=== PATIENT | female | born 1990 | race Caucasian/White ===

== ENCOUNTER 2018-10-04 09:04 | Outpatient (CLI) | payer MEDICAID, SELFPAY ==
[2018-10-04 13:00] LABS: Ammonia < 10 umol/L (11-32)
[2018-10-04 13:07] LABS: ALT 52 U/L (12-78); AST 17 U/L (15-37); Albumin 4.4 g/dL (3.4-5.0); Alkaline Phosphatase 117 U/L (46-116); Anion Gap 10.7 mmol/L (3-11); BUN 8 mg/dL (7-18); Bilirubin, Total 0.5 mg/dL (0.2-1.0); CO2 27.3 mmol/L (21.0-32.0); CREATININE 0.75 mg/dL (0.55-1.02); Calcium 9.2 mg/dL (8.5-10.1); Chloride 102 mmol/L (98-107); Glucose 90 mg/dL (70-100); Potassium 3.6 mmol/L (3.5-5.1); Sodium 140 mmol/L (136-145)
== END 2018-10-04 09:24 ==
LOC: LBO 09:25 → LOS 10:21 → LBO 12:36
PROVIDERS: PCP Family Medicine; Visit Provider Family Medicine
DX: K70.31 Alcoholic cirrhosis of liver with ascites (principal)
CPT/HCPCS: 36415; 80053; 82140

== ENCOUNTER 2020-01-22 14:39 | Outpatient (CLI) | payer MEDICAID, SELFPAY ==
[2020-01-22 16:40] LABS: HCG Qual (Serum) Negative
== END 2020-01-22 14:59 ==
PROVIDERS: PCP Family Medicine; Visit Provider Family Medicine
DX: Z32.00 Encounter for pregnancy test, result unknown (principal); Z30.42 Encounter for surveillance of injectable contraceptive
CPT/HCPCS: 36415; 84703

== ENCOUNTER 2020-05-29 03:07 | Outpatient (CLI) | payer MEDICAID, SELFPAY ==
[2020-05-29 15:02] LABS: ALT 26 U/L (14-59); AST 16 U/L (15-37); Alkaline Phosphatase 59 U/L (46-116); Anion Gap 9.5 mmol/L (3-11); BUN 7 mg/dL (7-18); Bilirubin, Total 0.3 mg/dL (0.2-1.0); CO2 25.5 mmol/L (21.0-32.0); CREATININE 0.64 mg/dL (0.55-1.02); Calcium 8.6 mg/dL (8.5-10.1); Chloride 106 mmol/L (98-107); Glucose 84 mg/dL (74-106); Potassium 4.1 mmol/L (3.5-5.1); Sodium 141 mmol/L (136-145); Total Protein 6.6 g/dL (6.4-8.2)
== END 2020-05-29 03:27 ==
PROVIDERS: PCP Nurse Practitioner Family; Visit Provider Family Medicine
DX: R74.8 Abnormal levels of other serum enzymes (principal)
CPT/HCPCS: 36415; 80053

== ENCOUNTER 2020-08-04 21:05 | Outpatient (REF) | payer MEDICAID, SELFPAY ==
[2020-08-04 21:33] LABS: HCT 41.7 % (36.0-46.0); HGB 13.8 g/dL (11.2-15.7); MCH 29.1 pg (27.0-33.0); MCHC 33.1 % (32.0-36.0); MCV 87.8 fL (80-95); MPV 10.9 fL (8.0-11.0); Platelet Count 265 10^3/uL (130-400); RBC 4.75 10^6/uL (3.93-5.22); RDW 12.2 % (11.7-14.6); RDW-SD 39.8 fL; WBC 12.96 10^3/uL (4.4-10.8)
[2020-08-04 22:00] LABS: ALT 19 U/L (14-59); AST 14 U/L (15-37); Albumin 4.7 g/dL (3.4-5.0); Alkaline Phosphatase 56 U/L (46-116); Anion Gap 11.3 mmol/L (3-11); BUN 8 mg/dL (7-18); Bilirubin, Total 0.4 mg/dL (0.2-1.0); CO2 24.7 mmol/L (21.0-32.0); CREATININE 0.67 mg/dL (0.55-1.02); Calcium 9.1 mg/dL (8.5-10.1); Chloride 104 mmol/L (98-107); Ferritin 104 ng/mL (8-252); Glucose 84 mg/dL (74-106); Magnesium 1.9 mg/dL (1.8-2.4); Potassium 3.7 mmol/L (3.5-5.1); Sodium 140 mmol/L (136-145); TSH 1.56 uIU/mL (0.36-3.74); Total Protein 7.7 g/dL (6.4-8.2)
[2020-08-04 22:29] LABS: FREE T4 1.12 ng/dL (0.76-1.46)
== END 2020-08-04 21:25 ==
LOC: LBN 21:05
PROVIDERS: PCP Nurse Practitioner Family; Visit Provider Nurse Practitioner Family
DX: G25.81 Restless legs syndrome (principal)
CPT/HCPCS: 80053; 85027; 82728; 83735; 84439; 84443

== ENCOUNTER 2020-10-17 15:06 | Outpatient (REF) | payer MEDICAID, SELFPAY ==
--- NOTE | 2020-10-17 14:30 | PAPFT_PTH ---
PATIENT: Zaire Page LOC: [facility] U#:[id number] AGE/SX: 30/F ROOM: RE10/17/[address]: Aleida Franks MD, DC : 1990 BED: DIS: 10/17/2020 SPEC #: [id number] RECD: 10/20/20 13:00 STATUS: KARINA REQ #: [id number] CAESAR: 10/17/20 14:[address]: Aleida Franks DEPT: [facility] Cytology RECD BY: Luisa Linda ENTERED: 10/20/20 13:00 SP TYPE: PAPFT OTHR DR: FRANCESCO Phan Tissues: 1 - CX/ENDOCX FOR PAP SMEARS Procedures: PAP THIN PREP/UVM Screening HPV DNA PROBE Comments: [id number] (HPV 106 / 18/45)
== END 2020-10-17 15:26 ==
LOC: LBN 15:06
PROVIDERS: PCP Nurse Practitioner Family; Visit Provider Family Medicine
DX: Z12.4 Encounter for screening for malignant neoplasm of cervix (principal); Z11.51 Encounter for screening for human papillomavirus (HPV); R87.810 Cervical high risk human papillomavirus (HPV) DNA test positive
CPT/HCPCS: 88142; 87624

== ENCOUNTER 2020-11-28 09:41 | Outpatient (REF) | payer MEDICAID, SELFPAY ==
--- NOTE | 2020-11-28 09:27 | ENDO_PTH ---
PATIENT: Zaire Page LOC: [facility] U#:[id number] AGE/SX: 30/F ROOM: RE11/28/[address]: Shantal Mcintyre MD : 1990 BED: DIS: 11/28/2020 SPEC #: [id number] RECD: 11/28/20 12:35 STATUS: KARINA MONTOYA #: [id number] CAESAR: 11/28/20 09:[address]: Shantal Mcintyre DEPT: Surgical Specimen RECD BY: Luisa Linda ENTERED: 11/28/20 12:36 SP TYPE: Endo OTHR DR: FRANCESCO Phan Tissues: 1 - ENDOCERVICAL BX/CURRETTE Procedures: GROSS AND MICRO LEVEL 4 Comments: [id number]
--- OUTSIDE RECORDS SUMMARY | 2020-11-28 09:49 | XMS_ITS | Encounter Summary ---
:1990 Author Care Team Providers Name Role Phone Gala White AMBULATORY ANALYST Primary Care Provider [phone] [facility] Medical Records Primary Care Provider [phone] Reason for Visit None recorded. Assessment and Plan 1. Restless legs She is instructed that caffein e and chocolate may worsen RLS symptoms and they may be improved by exercise. Also that certain medications may worsen symptoms to include over the counter antihi stamines taken for allergies. She is not taking any medications that would cause/worsen RLS. Her caffeine intake is as late as 6 pm. Labs from 08/04/20 CBC WBC 12.96 otherwise unremarkable, CMP, TSH, guy e T4 , Mg and ferritin (104) all wnl . Labs unremarkable as above. She is taking gabapentin 600 mg TID (last dose at 6 pm) and was on tramadol 50 mg TID until this was discontinued by PCP last month. Her symptoms did not significantly worse n when she stopped this. She has not been on a dopamine agonist in the past or taken higher doses of gabapentin. She is having aching pain symptoms all the time , she can't sit still because of them. T his is all day. She has to get up and walk. A car ride for 40 minutes is very difficult because symptoms get worse. She also has nightly symptoms that a very clas sic for RLS with extreme restlessness. S he is aware of leg twitching and she has sleep fragmentation which may be from PLMS. I am not ordering a PSG because whether she has PLMS or not I am starting her on a dopamine agonist so the outcome wo uld not change. She is advised not to have caffeine after 1-2 pm and I am starting her on ropinirole 1 mg taken 2-3 hours before bedtime. Side effect profile disc ussed including risk of impulse control disorder. I may increase dose at follow- up (or sooner if she calls) and may consider adding BID or increasing gabapentin if needed. I provided greater than 40 minutes in th e care of this patient, more than half the time was spent in [id number] counseling. ? ropinirole 1 mg tablet Discussion Note: None recorded.Patient educational handouts: No information available. Plan of Care Reminders Provider Appointments Office 30 01/27/2021 Pasha dionioswald Ignacio, 9:30AM AMBULATORY ANALYST Lab None ? ? recorded. Referral None ? ? recorded. Procedures None ? ? recorded. Surgeries None ? ? recorded. Imaging None ? ? recorded. Medications Name Start Date ? ? gabapentin 300 mg capsule ? Take 2 capsules 3 times a day by oral route. ibuprofen ? medroxyprogesterone 150 mg/mL intramuscular syringe ? Inject 1 mL every 3 months by intramuscular route. methylphenidate 5 mg tablet ? Take 1 tablet twice a day by oral route. methylphenidate ER 18 mg tablet,extended release 24 hr ? Take 1 tablet every day by oral route. ropinirole 1 mg tablet ? take 1 PO 2-3 hours before bedtime Medications Administered None recorded. Vitals Height Weight BMI Blood Pressure 5 ft 0.75 in 141 lbs 26.9 kg/m2 120/80 mm[Hg] Results Lab Results None recorded. Allergies Code Code System Name Reaction Severity Onset NKDA ? ? ? Problems Name Status Onset Date Source ? Alcohol Abuse Active 08/21/2020 ? Restless Legs Active 08/21/2020 ? 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 Anxiety Active ? ? Attention Deficit Hyperactivity Disorder Active ? ? Secondary Peripheral Neuropathy Active ? ? Procedures None recorded. Vaccine List None recorded. Social History Tobacco Smoking Status Former Smoker Notes: quit 6 months ago Alcohol intake None Live alone or with others? with others Notes: kid s Hard of hearing or deaf in one or N both ears? Animal exposure? Y Notes: cat Caffeine intake Occasional Notes: 3 cups of coffee or tea durning the day . Blind or serious difficulty seeing N Not es: glasses Functional Status No Impairment. Past Encounters 09/23/2020 Restless Legs Debi Pierre AMBULATORY ANALYST: [address] [place] [phone], Ph. History of Present Illness Note: <p>Zaire Page is seen in consultation at the request of Gala White NP for evaluation of restless legs.</p><p>
</p><p>Zaire has a medical history to include alcohol abuse (quit 2017), alcohol myopathy, anxiety, peripheral neuropathy and RLS. Labs reviewed from 08/04/20 CBC WBC 12.96, CMP, TSH, free T4, Mg and ferritin (104) all wnl. Per Gala's last note in 07/2020, Zaire was taking gabapentin 300 mg and tramadol 50 mg TID. She was discontinuing the tramadol at that time.</p><p>
</p><p>{{Zaire# Patient}} feels {{his her*}} biggest problem with sleep is {{her legs# snoring waking up a lot not feeling rested}}. This has been a problem for years. {{He She*}} typically goes to bed at {{10# 9}}pm. It takes {{15# 5}} minutes to fall asleep. {{He She*}} wakes up {{3-10# 1 2 3}} times a night from {{legs# unknown reason pain bathroom}} and it takes {{a few# }} minutes to get back to sleep. {{He She *}} gets up at {{6:30# 5 6 7 8}}am to start {{his her*}} day. {{He She*}} does not take naps. {{He She*}} has disturbances to {{his her*}} sleep to include having {{TV lights noise children pets}} in the bedroom at night. {{He She*}} has never had a sleep study. {{He She*}}sleeps {{alone * with someone}} in a bed.

SLEEP QUALITY: Feels quality of sleep most nights is {{good * okay poor}}.

DAYTIME ALERTNESS: Reports levelof alertness most days to be {{alert * low energy sleepy very sleepy}}.

PSYCH SYMPTOMS: {{Has* Has not}} noted worsening memory {{and * or}} concentration. {{Does have Denies current problems with *}} irritability, depression, {{and or*}} anxiety. {{Has Has not*}} noted difficulty with calculations.

INSOMNIA SYMPTOMS: {{Does have Does not have*}} an active mind at night when trying to sleep. {{Does have Does not have*}} stressful thoughts interfering with sleep. {{Does Does not*}} watch the clock throughout the night. {{Does Does not*}} worry about getting a good night's sleep.

BREATHING SYMPTOMS: {{Does have Does not have*}} snoring. {{Does have Does not have*}} witnessed apnea. {{Does have Does not have*}} nocturnal choking/gasping/dyspnea.{{Does have Does not have*}} mouth breathing. {{Does have Does not have*}} nasal congestion at night.

MOVEMENT SYMPTOMS: {{Does have * Does not have}} tossing & turning. {{Does have Does not have*}} messy sheets in the morning. {{Does have * Does not have}} leg or arm jerks, kicks or twitches in sleep or prior to falling asleep. {{Does * Does not}} have an aching, restless or crawling feeling in legs at night. {{Does * Does not}} have a hard time keeping legs still when trying to sleep. {{Does * Does not}} have muscle cramps or Daniele horses in {{legs arms feet*}}. {{Does Does not*}} have sleep walking ortalking.

DREAM SYMPTOMS: {{Does have Does not have*}} nightmares often that affect ability to sleep. {{Does have Does not have*}} dreams of suffocating/drowning. {{Does Does not*}} dream shortly after falling asleep. {{Does Does not*}} see dreams in the room even when awake.{{Does Does not*}} see or hear things in the room when falling asleep that aren't really there. {{Does Does not*}} see things in the road when driving that aren't really there. {{Has Hasnot*}} had someone see then act our their dreams. {{Has Has not*}} accidentally injured themselveswhile sleeping due to own movements/behaviors.

CATAPLEXY SYMPTOMS: {{Does have Does not have*}} feel limp, lose strength, or fall asleep when very angry, surprised or laughing. {{Does have Does not have*}} leg, arm or face weakness when upset. {{Has Has not*}} had episodes of being unable to move when waking up which is often frightening.

DRIVING: {{Has Has not*}} fallen asleep or nearly fallen asleep driving. {{Has had Has not had*}} an accident related to drowsy driving or not paying attention. {{Does Does not*}} forget the last few miles or minutes while driving. {{Has Has not*}} driven out of danielle and crossed center line or gone onto shoulderwhen driving. {{Has Has not*}} had a passenger tell them they look sleepy when driving.
&l t;br>ESS today 06/23
Minerva Questionnaire Score 0/3</p>Review of Systems: ROS as noted in the HPI Review of Systems ? Notes: <p>no teeth, leg weakness an d pain in leg joints.</p><p>She denies night sweats, snoring, heartburn, nocturia, or morning headaches.</p> Physical Exam ? Notes: <p>General: A&O, well groome d, answers questions appropriately, {{over weight obese morbidly obese n ormal weight * thin}}.
HEAD: normocephalic & atraumatic, {{normal appeari ng chin * retrognathia}}.
EYES: non icteric.
NOSE: open nasal passages, septum midline, no polyps or masses.
THROAT/MOUTH: ankit st mucous membranes, modified mallampati score {{1 2 3 * 4}}, tonsils with out hypertrophy. Lateral wall narrowing grade {{1 * 2 3}}. Tongue scallopin g {{is * is not}} noted.
NECK: supple without palpable lymph nodes.
LUNGS: CTA all mcclellan. Good air movement.
CARDIO: RRR wit hout murmur, gallop or thrill.
ABDOMEN: soft and non tender with positive bowel sounds.
MS: Good ROM of all extremities. No cyanosis, clubbing or katerin ma.
NEURO: A&O. Normal gait.
PSYCH: Normal mood and affect.
CUTANEOU S: no overt lesions or rashes</p>
--- OUTSIDE RECORDS SUMMARY | 2020-11-28 09:49 | XMS_ITS | Encounter Summary ---
:1990 Author Care Team Providers Name Role Phone Gala White ASSOCIATE LOAN OFFICER Primary Care Provider [phone] [facility] Medical Records Primary Care Provider [phone] Reason for Visit Telehealth visit - Patient at home Assessment and Plan Assessment Note This visit was performed virtually using synchronous audio-visual connection via Zoom. As such, the physical examination is necessarily limited. The risks and benefits of the use of this alternative platform were discussed with the parent and verbal consent was obtained. My assessme nt and plans are based on such examination. Further evaluation, including in-person examination, may be needed depending on the response to management or today's recomm endation. 1. Restless legs She was previously instructed that caffeine and chocolate may worsen RLS symptoms and they may be improved by exercise. Also that certain medications may worsen symptoms to include over the co unter antihistamines taken for allergies . She is not taking any medications that would cause/worsen RLS. Her caffeine intake is as late as 6 pm and chocolate so she was reminded to cut back on these. La bs unremarkable. She is taking gabapenti n 600 mg TID (last dose at 6 pm) which helps reduce intensity of her symptoms. She was on tramadol 50 mg TID until this was discontinued by PCP a couple of months ago. Her symptoms did not significantly worsen when she stopped this. Last visit I prescribed ropinirole 1 mg taken 2-3 hours before bedtime. She has been taking this right at bedtime and has ot notice d any improvement in her symptoms. I ask ed her to take it a full three hours before bedtime and call in 1-2 weeks to let me know if it is helping. I may increase dose, increase frequency f dose or de la fuente e to Neupro if not better. It is worth n oting that she seems to complain of significant pain which is not typical of RLS and I wonder how much her neuropathy is playing a role in her symptoms. She may n eed further management with neuropathic medications in the future. I provided greater than 30 minutes in e care of this patient, more than half the time was spent in [id number] counseling. Discussion Note: None recorded.Patient educational handouts: No information available. Plan of Care Reminders Provider Appointments Office 30 01/27/2021 Pasha Pierre, 9:30AM ASSOCIATE LOAN OFFICER Lab None ? ? recorded. Referral None [...] Administered None recorded. Vitals Height Weight BMI 5 ft 0.75 in 121 lbs 23 kg/m2 Results Lab Results None recorded. Allergies Code [...] glasses Functional Status No Impairment. Past Encounters 11/20/2020 Restless Legs Debi Pierre, ASSOCIATE LOAN OFFICER: [address] [place] [phone], Ph. History of Present Illness Note: <p>Zaire Page has a Zoom visit for RLS follow-up. She has given consent to have a telehealth visit. Patient is at home, provider is in the office</p><p>
</p><p>Zaire was seen by me on 09/23/20. She has a medical history to include alcohol abuse (quit 2017), alcohol myopathy, anxiety, peripheral neuropathy and RLS. Labs reviewed from 08/04/20 CBC WBC 12.96, CMP, TSH, free T4, Mg and ferritin (104) all wnl. At her last visit she was taking gabapentin 600 mg TID with persistent aching legs all day and classic RLS every night. I started her on ropinirole 1 mg at that time.</p><p>
</p><p>Zaire tells me she is taking the ropinirole and she does not think it is doing anything but she falls asleep as soon as she takes it so she is waiting to take it until right when she goes to bed. She says she constantly has to move her legs because they hurt. When she moves they do feel better but if she sits still they hurt so bad she c an't stand it. She is taking gabapentin 600 mg TID and this helps with the intensity of the symptoms. She says without the gabapentin the RLS are mouch worse and feel like she is withdrawing from drugs. </p><p>
ESS today 11/23</p>Review of Systems: ROS as noted in the HPI Review of Systems None recorded. Physical Exam ? Notes: <p>N/A</p>
--- OUTSIDE RECORDS SUMMARY | 2020-11-28 09:49 | XMS_ITS ---
:1990 Author Care Team Providers Name Role Phone SNEHAL MCGOWAN FLUSH TESTER Primary Care Provider [phone] [facility] MEDICAL RECORDS Primary Care Provider [phone] Allergies Code Code System Name Reaction Severity Status Onset NKDA ? Medications Name Status Start Date Stop Date ? ? gabapentin 300 mg capsule Active ? Not av ailable Take 2 capsules 3 times a day by oral route. ibuprofen Active ? Not available magnesium 500 mg tablet Completed ? 09/23/20 20 Take by oral route. medroxyprogesterone 150 mg/mL intramuscular syringe Active ? Not available Inject 1 mL every 3 months by intramuscular route. methylphenidate 5 mg tablet Active ? Not available Take 1 tablet twice a day by oral route. methylphenidate ER 18 mg tablet,extended release 24 hr Active ? Not available Take 1 tablet every day by oral route. potassium chloride 20 mEq oral packet Completed ? 09/23/2020 Take 1 packet 4 times a day by oral route. ropinirole 1 mg tablet Active ? Not avail able take 1 PO 2-3 hours before bedtime Problems Name Status Onset Date Source ? Alcohol Abuse Active 08/21/2020 ? Restless Legs Active 08/21/2020 ? 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 Anxiety Active ? ? Attention Deficit Hyperactivity Disorder Active ? ? Secondary Peripheral Neuropathy Active ? ? Procedures None recorded. Results Lab Results None recorded. Past Encounters 11/20/2020 Restless Legs Debi Pierre FLUSH TESTER: [address] [place] [phone], Ph. 09/23/2020 Restless Legs Debi Pierre NP: [address] [place] [phone], Ph. Social History Tobacco Smoking Status Former Smoker Notes: quit 6 months ago Vaccine List None recorded. Plan of Care Reminders Provider Appointments None ? ? recorded. Lab None ? ? recorded. Referral None ? ? recorded. Procedures None ? ? recorded. Surgeries None ? ? recorded. Imaging None ? ? recorded. Vitals 11/20/2020 01:00PM Office 30 Height Weight BMI 154.31 cm 54.88 kg 23 kg/m2 09/23/2020 01:15PM New Patient 43 Height Weight BMI Blood Pressure 154.31 cm 63.96 kg 26.9 kg/m2 120/80 mm[Hg]
== END 2020-11-28 10:01 ==
LOC: LBN 09:41
PROVIDERS: PCP Nurse Practitioner Family; Visit Provider Obstetrics & Gynecology
DX: N87.0 Mild cervical dysplasia (principal); Z86.001 Personal history of in-situ neoplasm of cervix uteri
CPT/HCPCS: 88305

== ENCOUNTER 2021-01-30 13:05 | Emergency (ER) | payer MEDICAID, SELFPAY ==
[2021-01-30 13:09] VITALS: BP 134/28; PULSE 113; RESP 22; TEMP 37.3; O2SAT 96
--- NOTE | 2021-01-30 13:15 | DI.RAD_ITS ---
EXAM: XR ANKLE LT COMPLETE CLINICAL HISTORY: left ankle pain and swelling after twist TECHNIQUE: COMPARISON: CR RIGHT ANKLE COMPLETE from 05/24/2017 FINDINGS: Three views were obtained. There is marked soft tissue swelling adjacent to lateral malleolus. Ther e is a question of slight widening of the tibiofibular and talofibular joints raising the possibility of ligamentous disruption at these joints. No acute fracture is identified. IMPRESSION: RADIATION DOSE DELIVERED: Total DLP
--- NOTE | 2021-01-30 13:15 | NUR.NOTE ---
Nursing Note: Pt given ice pack, pt places it posterior ankle .
--- NOTE | 2021-01-30 13:26 | W.ED.GENAD ---
Discharge Plan Disposition Patient Disposition: HOME Condition: Good Discharge Details Clinical Impression: Acute traumatic internal derangement of left ankle Primary Care Provider: Gala White ED Provider: Luisa Fitzpatrick Home Meds and New Rx's Prescriptions: New lidocaine [Lidoderm] 5 % adhesive patch,medicated 1 patch topical DAILY Qty: 15 RF: 0 No Action ropinirole 1 mg tablet 1 mg PO QHS RF: 0 medroxyprogesterone 150 mg/mL syringe 150 mg IM [id number] Qty: 3 RF: 4 methylphenidate HCl 20 mg tablet 20 mg PO DAILY MDD 20 Qty: 30 RF: 0 multivitamin [Daily Multi-Vitamin] Tablet 1 tab PO DAILY RF: 0 gabapentin 300 mg capsule 600 mg PO TID Qty: 540 RF: 4 methylphenidate HCl 36 mg tablet extended release 24hr 36 mg PO DAILY MDD 1 tab Qty: 30 RF: 0 ibuprofen 600 MG tablet 600 mg PO Q6H PRN (Reason: Pain) Qty: 20 RF: 0 Discharge Instructions Additional Instructions: Lidoderm patch 12 hours on, 12 hours off We reviewed and use your crutches until you are evaluated by orthopedic, give him a call Tuesday to schedule an appointment to review your x-ray findings and injury as it looks like you have injured the ligaments in your ankle Ibuprofen 600 mg every 8 hours with food Tylenol 650 mg 1 g every 6 hours, do not exceed 4 g of Tylenol daily Please return should you have new or worsening complaints Discharge Data Discharge Date/Time-TO BE ENTERED AT DEPARTURE: 01/30/21 14:43 Medical Decision Making X-ray chest abnormality, placed in boot and referred to orthopedics for follow-up Will use crutches Discharge condition Pain control: Ibuprofen and Tylenol Differential Diagnosis Differential Diagnosis: Fracture, strain, dislocation, abrasion Medical Records Medical records reviewed: Yes I reviewed the patient's medical records. Lab Data Lab results reviewed: Yes I reviewed the patient's lab results. HPI 30-year-old female with history of peripheral neuropathy, alcoholic stress test, presents with report of the left ankle pain after missing a step and landing on the ankle. She denies any additional injury or change of . She does state that she has been recovering from opiate addiction and that medication emergency room. She denies head or injury. General Date/Time Provider Initiated Documentation: 01/30/21 13:15. Related Data Home Medications Medication Instructions Recorded Confirmed ibuprofen 600 mg PO Q6H PRN #20 tab 01/18/17 01/30/21 gabapentin 300 mg capsule 600 mg PO TID #540 cap 08/06/20 01/30/21 multivitamin 1 tab PO DAILY 08/22/20 01/30/21 ropinirole 1 mg tablet 1 mg PO QHS 10/17/20 01/30/21 medroxyprogesterone 150 mg/mL 150 mg IM [id number] #3 ml 01/12/21 01/30/21 intramuscular syringe methylphenidate HCl 20 mg tablet 20 mg PO DAILY #30 tab-cap MDD 20 01/12/21 01/30/21 methylphenidate HCl 36 mg 36 mg PO DAILY #30 tab-cap MDD 1 01/21/21 01/30/21 tablet,extended release 24 hr tab lidocaine [Lidoderm] 1 patch TOPICAL DAILY #15 ea 01/30/21 Previous Rx's Medication Instructions Recorded ibuprofen 600 mg PO Q6H PRN #20 tab 01/18/17 gabapentin 300 mg capsule 600 mg PO TID #540 cap 08/06/20 medroxyprogesterone 150 mg/mL 150 mg IM [id number] #3 ml 01/12/21 intramuscular syringe methylphenidate HCl 20 mg tablet 20 mg PO DAILY #30 tab-cap MDD 20 01/12/21 methylphenidate HCl 36 mg 36 mg PO DAILY #30 tab-cap MDD 1 01/21/21 tablet,extended release 24 hr tab lidocaine [Lidoderm] 1 patch TOPICAL DAILY #15 ea 01/30/21 Allergies Allergy/AdvReac Type Severity Reaction Status Date / Time No Known Allergies Allergy Verified 01/30/21 13:12 General Stated Complaint: Orthopedic MAVERICK: 3 Review of Systems Narrative: Review of systems obtained x7 aside from where indicated in [facility] Medical History Abnormal Pap smear of cervix 2011 CIN3 s/p LEEP 2013 ASCUS neg HPV 2016, NIL, +HPV ADHD (attention deficit hyperactivity disorder), inattentive type Alcohol abuse Acute hepatitis, liver failure in 2017 Alcoholic cirrhosis of liver Hospitalized 2017 with hepatic failure. No longer drinking. LFTs normal now Alcoholic myopathy Contraceptive surveillance Generalized anxiety disorder HCV antibody positive No viral load detected History of intravenous drug use in remission Major depressive disorder Peripheral neuropathy Restless legs syndrome Rosacea Surgical History H/O LEEP (~2011) S/P appendectomy S/P cholecystectomy (06/22/16) Family History Mother Diabetes Alcohol abuse Father Alcohol abuse Sister No problems noted. Brother No problems noted. Son No problems noted. Son No problems noted. Maternal Grandfather No problems noted. Maternal Grandmother No problems noted. Paternal Grandfather No problems noted. Paternal Grandmother No problems noted. Social History Smoking/Tobacco Use Status: Former Tobacco Use Tobacco: How many years used: 20 Smoking risk assessment performed?: Yes Alcohol Intake: former Drug use: Socially Substance use type: marijuana Do you feel safe at home: Yes Do you feel safe in your relationship?: Yes Female Reproductive History Menstrual control method: progesterone injection History History 2 Para 2 Hx # Term Pregnancies Multiple births Hx # Pregnancies Ectopic pregnancies AB induced Hx Number of Living Children 2 AB spontaneous Exam Extrem Right lower extremity: normal capillary refill Left lower extremity: normal capillary refill Upper/lower leg/hip images: 1. Hematoma noted, tenderness Neurovascularly intact No tenderness with palpation to proximal tib-fib Course Vital Signs Vital signs: Vital Signs Temperature 37.3 C 01/30/21 13:09 Pulse 113 H 01/30/21 13:09 Respiratory Rate 22 01/30/21 13:09 Blood Pressure 134/28 L 01/30/21 13:09 Pulse Oximetry 96 01/30/21 13:09 Temperature 37.3 C 01/30/21 13:09 Temperature Source Skin 01/30/21 13:09 Pulse 113 H 01/30/21 13:09 Respiratory Rate 22 01/30/21 13:09 Respiratory Effort Non-Labored 01/30/21 13:11 Blood Pressure 134/28 L 01/30/21 13:09 Blood Pressure Position Sitting 01/30/21 13:09 Pulse Oximetry 96 01/30/21 13:09 Oxygen Delivery Method Room Air 01/30/21 13:09 Oxygen Flow Rate 0 01/30/21 13:09 Pain Level 10 01/30/21 13:19
[2021-01-30] MEDS: MORPHine 10 MG/ML VIAL 8 MG IM (13:27)
[2021-01-30] MEDS: Acetaminophen 500 MG TAB 1000 MG PO (13:28)
--- NOTE | 2021-01-30 13:38 | NUR.NOTE ---
Nursing Note: Pt arrives to ED [facility] mother whom drives her, Assisted out of car RN x 2 with wheelchair. Pt does not tolerate weight on left foot. Tearful and reports missed a step and twisted left ankle. Pt reports did not head head, denies LOC. reports no neck back pain. reports 10/10 pain, injury occurred within past 30 min of arriving. Pedal LLE preset , pt has sensation to LLE, toes able to move, cap refull < 3sec. GCS 15.
[2021-01-30] MEDS: oxyCODONE 10 MG TAB PO (14:27)
[2021-01-30] MEDS: Lidocaine 5% Patch 1 PATCH TP (14:27)
[2021-01-30 14:28] VITALS: BP 131/74; PULSE 87; RESP 16; O2SAT 98
--- NOTE | 2021-01-30 14:38 | NUR.NOTE ---
Nursing Note: Pt fitted with ortho boot, tolerates well. Pt instructed and demonstrated use. Pt brought out liborio wheelchair.
--- NOTE | 2021-01-31 12:27 | NUR.NOTE ---
Pt called, had declined crutches yesterday at discharge, thought had some at home. Called today requesting crutches. Pt measured for crutches, instructed on use with return demonstration.
== END 2021-01-30 14:43 | disposition home or self-care (01) ==
PROVIDERS: Emergency Provider Physician Assistant; PCP Nurse Practitioner Family
DX: S99.812A Other specified injuries of left ankle, initial encounter (principal); W18.43XA Slipping, tripping and stumbling without falling due to stepping from one level to another, initial encounter
CPT/HCPCS: 96372; 99284; 73610; 99283; J2270

== ENCOUNTER 2021-02-09 15:04 | Outpatient (CLI) | payer MEDICAID, SELFPAY ==
--- NOTE | 2021-02-09 14:00 | DI.RAD_ITS ---
EXAM: XR TIB/FIB LT CLINICAL HISTORY: L ankle injury. TECHNIQUE: 2D digital imaging was performed. COMPARISON: No exams were available for comparison FINDINGS: There is no evidence of fracture nor dislocation. Mild soft tissue swelling over the lateral malleol us is noted. Tibial plateau appears intact. IMPRESSION: No obvious fracture. DATA REPOSITORY: RADIATION DOSE DELIVERED:
== END 2021-02-09 15:05 | disposition home or self-care (01) ==
LOC: DIORS 15:04
PROVIDERS: PCP Nurse Practitioner Family; Referring Provider Nurse Practitioner Family; Visit Provider Physician Assistant
DX: S99.812D Other specified injuries of left ankle, subsequent encounter (principal)
CPT/HCPCS: 73590

== ENCOUNTER 2021-03-17 08:44 | Outpatient (CLI) | payer MEDICAID, SELFPAY ==
[2021-03-18 15:32] LABS: COVID-19 RT-PCR UVMMC Result Negative (Negative)
== END 2021-03-17 08:45 | disposition home or self-care (01) ==
PROVIDERS: PCP Nurse Practitioner Family; Visit Provider Nurse Practitioner Family
DX: Z20.822 Contact with and (suspected) exposure to COVID-19 (principal)
CPT/HCPCS: U0003

== ENCOUNTER 2021-10-08 02:37 | Outpatient (CLI) | payer MEDICAID, SELFPAY ==
[2021-10-08 13:34] LABS: ESR 5 mm/hr (0-20)
[2021-10-08 13:37] LABS: Abs Immature Grans 0.03 10^3/uL (0.0-0.06); Absolute Basophil Count 0.04 10^3/uL (0.0-0.2); Absolute Lymphocyte Count 2.53 10^3/uL (1.2-3.4); Absolute Monocyte Count 0.88 10^3/uL (0.1-0.8); Absolute Neutrophil Count 6.94 10^3/uL (1.2-6.7); Basophils % 0.4; HCT 40.4 % (36.0-46.0); HGB 13.4 g/dL (11.2-15.7); Immature Grans % 0.3; MCH 29.5 pg (27.0-33.0); MCHC 33.2 % (32.0-36.0); MCV 88.8 fL (80-95); MPV 9.7 fL (8.0-11.0); Monocytes % 8.4; Neutrophils % 65.9; Nucleated RBC 0 %; Platelet Count 258 10^3/uL (130-400); RBC 4.55 10^6/uL (3.93-5.22); RDW 12.9 % (11.7-14.6); RDW-SD 42.4 fL; WBC 10.52 10^3/uL (4.4-10.8)
[2021-10-08 14:29] LABS: C-Reactive Protein 0.05 mg/dL (0.0-0.3)
[2021-10-09 11:54] LABS: Lyme Ab w Rflx to Lyme Confirm Negative (Negative)
[2021-10-13 00:02] LABS: Anaplasma phagocytophilum Negative (Negative); B. miyamotoi PCR Negative (Negative); Babesia divergens/MO-1 Negative (Negative); Babesia duncani Negative (Negative); Babesia microti Negative (Negative); Ehrlichia chaffeensis Negative (Negative); Ehrlichia ewingii/canis Negative (Negative); Ehrlichia muris eauclairensis Negative (Negative)
== END 2021-10-08 02:38 | disposition home or self-care (01) ==
LOC: LBO 02:37
PROVIDERS: PCP Nurse Practitioner Family; Visit Provider Nurse Practitioner Family
DX: M25.551 Pain in right hip (principal); M25.552 Pain in left hip; M25.561 Pain in right knee; M25.562 Pain in left knee; M25.571 Pain in right ankle and joints of right foot; M25.572 Pain in left ankle and joints of left foot; R63.4 Abnormal weight loss
CPT/HCPCS: 36415; 85652; 87798; 85025; 86140; 86618

== ENCOUNTER 2021-10-19 12:36 | Outpatient (REF) | payer MEDICAID, SELFPAY ==
--- NOTE | 2021-10-19 13:40 | PAPFT_PTH ---
PATIENT: Zaire Page LOC: [facility] U#:[id number] AGE/SX: 31/F ROOM: RE10/19/[address]: FRANCESCO Phan : 1990 BED: DIS: 10/19/2021 SPEC #: [id number] RECD: 10/20/21 13:05 STATUS: KARINA REMorgan #: [id number] CAESAR: 10/19/21 13:[address]: Gala White DEPT: [facility] Cytology RECD BY: Luisa Linda Tissues: 1 - CX/ENDOCX FOR PAP SMEARS Procedures: PAP THIN PREP/UVM Screening HPV DNA PROBE Comments: [id number] (HPV 16 & 18/45)
== END 2021-10-19 12:37 | disposition home or self-care (01) ==
LOC: LBN 12:36
PROVIDERS: PCP Nurse Practitioner Family; Visit Provider Nurse Practitioner Family
DX: Z12.4 Encounter for screening for malignant neoplasm of cervix (principal); Z11.51 Encounter for screening for human papillomavirus (HPV); R87.810 Cervical high risk human papillomavirus (HPV) DNA test positive
CPT/HCPCS: 88142; 87624

== ENCOUNTER 2021-10-28 02:29 | Outpatient (CLI) | payer MEDICAID, SELFPAY ==
[2021-10-28 09:29] LABS: ALT 21 U/L (14-59); AST 13 U/L (15-37); Albumin 4.3 g/dL (3.4-5.0); Alkaline Phosphatase 64 U/L (46-116); Anion Gap 9.5 mmol/L (3-11); BUN 14 mg/dL (7-18); Bilirubin, Total 0.3 mg/dL (0.2-1.0); CO2 27.5 mmol/L (21.0-32.0); CREATININE 0.8 mg/dL (0.55-1.02); Calcium 9.1 mg/dL (8.5-10.1); Calculated LDL 92 mg/dL (<100); Chloride 106 mmol/L (98-107); Cholesterol 141 mg/dL (<200); Glucose 105 mg/dL (74-106); HDL Cholesterol 43 mg/dL (40-60); Potassium 4.1 mmol/L (3.5-5.1); Sodium 143 mmol/L (136-145); Total Protein 7.4 g/dL (6.4-8.2); Triglyceride 34 mg/dL (<150)
== END 2021-10-28 02:30 | disposition home or self-care (01) ==
LOC: LBO 02:29
PROVIDERS: PCP Nurse Practitioner Family; Visit Provider Nurse Practitioner Family
DX: K70.30 Alcoholic cirrhosis of liver without ascites (principal); Z00.00 Encounter for general adult medical examination without abnormal findings
CPT/HCPCS: 36415; 80053; 80061

== ENCOUNTER 2021-11-30 12:36 | Outpatient (REF) | payer MEDICAID, SELFPAY ==
--- NOTE | 2021-11-30 11:20 | ENDO_PTH ---
PATIENT: Zaire Page LOC: [facility] U#:[id number] AGE/SX: 31/F ROOM: RE11/30/[address]: Maddison Lehman DO : 1990 BED: DIS: 11/30/2021 SPEC #: [id number] RECD: 11/30/21 13:12 STATUS: KARINA RE #: [id number] CAESAR: 11/30/21 11:[address]: Maddison Lehman DEPT: Surgical Specimen RECD BY: Luisa Linda ENTERED: 11/30/21 13:13 SP TYPE: Endo OTHR DR: FRANCESCO Phan Tissues: 1 - ENDOCERVICAL BX/CURRETTE 2 - CERVICAL BIOPSY Procedures: GROSS AND MICRO LEVEL 4 Comments: [id number]
== END 2021-11-30 12:37 | disposition home or self-care (01) ==
LOC: LBN 12:36
PROVIDERS: PCP Nurse Practitioner Family; Visit Provider Obstetrics & Gynecology
DX: Z87.42 Personal history of other diseases of the female genital tract (principal)
CPT/HCPCS: 88305

== ENCOUNTER → 2022-10-08 16:29 | Outpatient (CLI) | payer MEDICAID, SELFPAY ==
--- NOTE | 2022-10-08 16:15 | DI.RAD_ITS ---
Exam(s) XR FOOT RT COMPLETE EXAM: XR FOOT RT COMPLETE CLINICAL HISTORY: evaluate pathology M79.671 PAIN RT FOOT. TECHNIQUE: 2D digital imaging was performed of the right foot. Three images were obtained. AP, obl ique and lateral views were obtained. COMPARISON: No exams were available for comparison FINDINGS: BONES: No acute fracture is present. No bony destructive lesion is seen. JOINTS: No dislocation present. SOFT TISSUE: Normal. IMPRESSION: Unremarkable radiographs of the right foot. DATA REPOSITORY: RADIATION DOSE DELIVERED:
== END ==
PROVIDERS: PCP Nurse Practitioner Family; Visit Provider Nurse Practitioner Family
DX: M79.671 Pain in right foot (principal)
CPT/HCPCS: 73630

== ENCOUNTER 2022-10-21 16:59 | Outpatient (REF) | payer MEDICAID, SELFPAY ==
--- NOTE | 2022-10-21 14:15 | PAPFT_PTH ---
PATIENT: Zaire Page LOC: [facility] U#:[id number] AGE/SX: 32/F ROOM: RE10/21/[address]: FRANCESCO Phan : 1990 BED: DIS: 10/21/2022 SPEC #: [id number] RECD: 10/22/22 12:44 STATUS: KARINA REQ #: [id number] CAESAR: 10/21/22 14:[address]: Gala White DEPT: [facility] Cytology RECD BY: Luisa Linda Tissues: 1 - CX/ENDOCX FOR PAP SMEARS Procedures: PAP THIN PREP/UVM Screening HPV DNA PROBE Comments: [id number] (HPV 16 & 18/45)
== END 2022-10-21 17:00 | disposition home or self-care (01) ==
LOC: LBN 16:59
PROVIDERS: PCP Nurse Practitioner Family; Visit Provider Nurse Practitioner Family
DX: Z12.4 Encounter for screening for malignant neoplasm of cervix (principal); Z11.51 Encounter for screening for human papillomavirus (HPV); R87.810 Cervical high risk human papillomavirus (HPV) DNA test positive
CPT/HCPCS: 88142; 87624

== ENCOUNTER 2022-12-07 08:20 | Emergency (ER) | payer MEDICAID, SELFPAY ==
[2022-12-07 08:23] VITALS: BP 122/83; PULSE 101; RESP 18; TEMP 36.7; O2SAT 95
--- NOTE | 2022-12-07 08:30 | DI.RAD_ITS ---
Exam(s) XR FOREARM RT EXAM: XR FOREARM RT CLINICAL HISTORY: Dog bite/crush injury distal forearm. TECHNIQUE: 2D digital imaging was performed. COMPARISON: No exams were available for comparison FINDINGS: Two views: No evidence of fracture or dislocation. Bone density normal. No osseous lesions. No radiopaque for eign body. There is no gas in the soft tissues. IMPRESSION: No significant findings. DATA REPOSITORY: RADIATION DOSE DELIVERED:
--- NOTE | 2022-12-07 08:34 | ED.GENADUL_ITS ---
Discharge Plan Disposition Patient Disposition: Home Condition: Stable Discharge Details Clinical Impression: Dog bite of arm, Crush injury arm Primary Care Provider: Gala White ED Provider: Angelito Dunn Home Meds and New Rx's Prescriptions: New amoxicillin-pot clavulanate 875-125 mg tablet 1 tab PO Q12H 7 Days Qty: 14 0RF Continued Neupro 2 mg/24 hour patch 24 hour 2 mg transdermal DAILY multivitamin [Daily Multi-Vitamin] Tablet 1 tab PO DAILY loratadine [Allergy Relief (loratadine)] 10 mg tablet 10 mg PO DAILY Qty: 90 3RF gabapentin 800 mg tablet 800 mg PO TID Qty: 360 3RF methylphenidate HCl 20 mg tablet 30 mg PO DAILY MDD 30 Qty: 42 0RF Rx Instructions: Take 1.5 tablets daily in the afternoon methylphenidate HCl 36 mg tablet extended release 24hr 36 mg PO DAILY MDD 1 tab Qty: 28 0RF Rx Instructions: Take 1 tablet daily in the morning ibuprofen 600 MG tablet 600 mg PO Q6H PRN (Reason: Pain) Qty: 20 0RF Discharge Instructions Instructions: Animal Bite (ED) Additional Instructions: You may continue to use [id number] pain medication as needed for discomfort. If you notice any signs of redness, drainage, or signs of infection as discussed please start antibiotic immediately and take full course of medication. If you are not seeing signs of improvement in the next 1 to 2 weeks please follow-up with your primary care provider for reassessment and consideration of repeat imaging. You may use the provided wrist brace as needed for discomfort. Stand Alone Forms: Work Release Referrals: Gala White, [facility] [Primary Care Provider] - 1 week (As needed) Medical Decision Making Patient presenting to the emergency department for chief complaint of dog bite to right forearm. She states this was an accidental bite as she was attempting to care for her dog and did not realize the dog had food and bit her on the right forearm when she reached down. She denies any breaking of the skin or open wound but states significant pain with rotation of the forearm and also noted bruising and swelling. Denies any other injury or trauma.. Physical exam does show ecchymosis and swelling to the distal right forearm with 2 large areas of ecchymosis. There does not appear to be any puncture wounds but there is bruising in pattern of teeth. Patient does state that she is up-to-date on her tetanus along with the dog being domesticated dog and up-to-date on all vaccines along with noting no other abnormal behavior of the dog. Will perform radiological imaging of the right forearm for crush injury. Pending results will give acetaminophen as patient took ibuprofen just prior to arrival. My review of radiological imaging shows no acute fracture. Suspect crush injury with surrounding soft tissue injury. Given no obvious break of the skin I do not feel that patient needs to be started on antibiotics emergently but I will give a pocket prescription to patient in case she does start having any infe ctious symptoms given the mechanism of injury. After discussion of diagnosis and plan of care patient has no further needs, questions, or concerns and states clear understanding to return to the emergency department for any worsening symptoms. This documentation was generated using [employer] system, please disregard any oddities of phrase or misspellings. HPI General Mode of arrival: ambulatory . Date/Time Provider Initiated Documentation: 12/07/22 08:27 . Limitations to Documentation: no limitations . Information obtained by: patient and RN notes reviewed . History of Present Illness 32 year old F presents to the emergency department with the chief complaint of Dog bite right forearm, described as severe, with intensity rated at 8. Quality is described as sharp, and is localized to the right and upper extremity. Patient reports no radiation. Patient started experiencing this day(s) (1) and it has been constant. No relieving factors improve symptom(s), Movement worsens symptoms . Patient notes no other symptoms.. Patient did receive the following treatments prior to arrival, NSAID Related Data Home Medications Medication Instructions Recorded Confirmed ibuprofen 600 mg tablet 600 mg PO Q6H PRN Pain #20 tabs 01/18/17 12/07/22 multivitamin (Daily Multi-Vitamin 1 tab PO DAILY 08/22/20 12/07/22 tablet) rotigotine 2 mg/24 hour 2 mg transdermal DAILY 10/19/21 12/07/22 transdermal 24 hour patch (Neupro) loratadine 10 mg tablet (Allergy 10 mg PO DAILY #90 tabs 06/09/22 12/07/22 Relief (loratadine)) gabapentin 800 mg tablet 800 mg PO TID #360 tabs 06/17/22 12/07/22 methylphenidate HCl 20 mg tablet 30 mg PO DAILY #42 tab-caps 09/27/22 12/07/22 methylphenidate HCl 36 mg 36 mg PO DAILY #28 tab-caps 09/27/22 12/07/22 tablet,extended release 24 hr amoxicillin 875 mg-potassium 1 tab PO Q12H 7 days #14 tabs 12/07/22 clavulanate 125 mg tablet Previous Rx's Medication Instructions Recorded ibuprofen 600 mg tablet 600 mg PO Q6H PRN Pain #20 tabs 01/18/17 loratadine 10 mg tablet (Allergy 10 mg PO DAILY #90 tabs 06/09/22 Relief (loratadine)) gabapentin 800 mg tablet 800 mg PO TID #360 tabs 06/17/22 methylphenidate HCl 20 mg tablet 30 mg PO DAILY #42 tab-caps 09/27/22 methylphenidate HCl 36 mg 36 mg PO DAILY #28 tab-caps 09/27/22 tablet,extended release 24 hr amoxicillin 875 mg-potassium 1 tab PO Q12H 7 days #14 tabs 12/07/22 clavulanate 125 mg tablet Allergies Allergy/AdvReac Type Severity Reaction Status Date / Time No Known Allergies Allergy Verified 12/07/22 08:28 General Stated Complaint: AnimalBite MAVERICK: 4 Review of Systems Narrative: 6 systems reviewed and unremarkable except what is marked below. Musculoskeletal Musculoskeletal: Reports as per HPI, Reports arthralgias, Reports joint swelling and Reports limited range of motion Integumentary/Breasts Skin/Breast: Reports unusual bruising and Denies wounds PFSH All Active Problems (Updated 12/07/22 @ 09:07 by Angelito Dunn NP) Alcoholic myopathy (Chronic) Rosacea (Chronic) ADHD (attention deficit hyperactivity disorder), inattentive type (Chronic) Abnormal Pap smear of cervix (Chronic) 2011 CIN3 s/p LEEP 2014 ASCUS neg HPV 2017, NIL, +HPV 2019, NIL, +HPV 2020, NIL, +HPV 2021, NIL, +HPV Peripheral neuropathy (Chronic) Restless legs syndrome (Chronic) Presence of subdermal contraceptive implant (Chronic 06/28/22) Dog bite of arm (Acute) Crush injury arm (Acute) Medical History Alcohol abuse Acute hepatitis, liver failure in 2017 COVID-19 (~02/12/22) Generalized anxiety disorder HCV antibody positive No viral load detected History of intravenous drug use in remission Major depressive disorder Surgical History H/O LEEP (~2011) S/P appendectomy S/P cholecystectomy (06/22/16) Family History Mother Diabetes Alcohol abuse Bipolar disorder Father Alcohol abuse Sister No problems noted. Brother No problems noted. Son No problems noted. Son No problems noted. Maternal Grandfather Diabetes Maternal Grandmother No problems noted. Paternal Grandfather Heart disease Myocardial infarction Paternal Grandmother Diabetes Social History Smoking/Tobacco Use Status: Former Tobacco Use Tobacco: How many years used: 20 Smoking risk assessment performed?: Yes Alcohol Intake: former Drug use: Current Sobriety Caregiver/Support person: No Household members: children Housing: apartment Communication Needs: None Pets and animals: Yes Pets and animals: cat(s) Sexually active: No Do you think of yourself as: straight/heterosexual Current gender identity: female What is your relationship status?: never How often do you talk on the phone with friends or family?: three or more times per week How often do you get together with friends or relatives?: three or more times per week How often do you attend scientologist or oriental orthodox services?: decline to answer Do you belong to any clubs or organized social groups?: decline to answer Panel score (0-1 are the most socially isolated patients): 1 What type of physical activity do you participate in: none Frequency: does not exercise Tanya/Sabianist: Druze Seatbelt use: always Helmet use: Yes Helmet use: always Drive intox or ride w/intox driver trainer: No Do you feel safe at home: Yes Do you feel safe in your relationship?: Yes Female Reproductive History Menstrual control method: implanted History History 2 Para 2 Hx # Term Pregnancies Multiple births Hx # Pregnancies Ectopic pregnancies AB induced Hx Number of Living Children 2 AB spontaneous Exam Const General: cooperative, no acute distress and not ill appearing Orientation: alert, awake and oriented x3 Resp Effort & Inspection: normal respiratory effort, able to speak in complete sentences and no respiratory distress Cardio Rate: regular rate Rhythm: regular rhythm Pulses: radial pulses present Neuro General: patient alert, patient awake, patient oriented x3 and moves all extremities Sensory Exam: no sensory deficits noted Extrem General: normal exam except as noted Right upper extremity: elbow/forearm Details: tenderness and abnormal ROM Details: pain with active ROM during Details: with pronation and with supination, wrist Details: tenderness Location: of the distal radius and of the distal ulna, swelling Location: of the dorsal wrist, abnormal ROM Details: pain with active ROM during, ecchymosis forearm distal Details: multiple, normal vascular exam and radial pulse present; no lacerations and hand Details: normal capillary refill and neurosensory exam normal Course Vital Signs Vital signs: Vital Signs Temperature 36.7 C 12/07/22 08:23 Pulse 101 H 12/07/22 08:23 Respiratory Rate 18 12/07/22 08:23 Blood Pressure 122/83 12/07/22 08:23 Pulse Oximetry 95 12/07/22 08:23 Temperature 36.7 C 12/07/22 08:23 Temperature Source Oral 12/07/22 08:23 Pulse 101 H 12/07/22 08:23 Respiratory Rate 18 12/07/22 08:23 Respiratory Effort Non-Labored 12/07/22 08:25 Blood Pressure 122/83 12/07/22 08:23 Pulse Oximetry 95 12/07/22 08:23 Oxygen Delivery Method Room Air 12/07/22 08:23 Oxygen Flow Rate 0 12/07/22 08:23
[2022-12-07] MEDS: Acetaminophen 500 MG TAB 1000 MG PO (08:44)
--- NOTE | 2022-12-07 09:08 | NUR.NOTE ---
Nursing Note: Animal bite report form faxed to [place] [place] for follow up. Message left for Deisy Silver [facility] health officer regarding the form that was faxed. Deisy Silver [phone] [place] [facility] [employer] fax [phone]
[2022-12-07 09:26] VITALS: BP 118/72; PULSE 85; RESP 18; O2SAT 98
== END 2022-12-07 09:24 | disposition home or self-care (01) ==
PROVIDERS: Emergency Provider Nurse Practitioner Family; PCP Nurse Practitioner Family
DX: S51.851A Open bite of right forearm, initial encounter (principal); Z86.16 Personal history of COVID-19; W54.0XXA Bitten by dog, initial encounter
CPT/HCPCS: 99283; 73090; 99282

== ENCOUNTER 2023-01-17 08:43 | Outpatient (REF) | payer MEDICAID, SELFPAY ==
[2023-01-17 13:25] LABS: *AMPHETAMINES SCREEN URINE Negative (Negative); *BARBITURATES SCREEN URINE Negative (Negative); *BENZODIAZEPINES SCREEN URINE Negative (Negative); Cannabinoids THC Positive (Negative); Cocaine Screen,Urine Negative (Negative); METHADONE URINE SCREEN Negative (Negative); OPIATES URINE SCREEN Negative (Negative)
[2023-01-17 13:37] LABS: Tricyclic Antidepressants Negative (Negative)
== END 2023-01-17 08:44 | disposition home or self-care (01) ==
LOC: LBN 08:43
PROVIDERS: PCP Nurse Practitioner Family; Visit Provider Nurse Practitioner Family
DX: F90.0 Attention-deficit hyperactivity disorder, predominantly inattentive type (principal); Z79.899 Other long term (current) drug therapy; R82.5 Elevated urine levels of drugs, medicaments and biological substances
CPT/HCPCS: 80307

== ENCOUNTER 2023-11-17 09:40 | Outpatient (REF) | payer BC, SELFPAY ==
--- NOTE | 2023-11-17 09:15 | PAPFT_PTH ---
PATIENT: Zaire Page LOC: [facility] U#:[id number] AGE/SX: 33/F ROOM: RE11/17/[address]: Lucille Del Toro : 1990 BED: DIS: 11/17/2023 SPEC #: [id number] RECD: 11/17/23 12:59 STATUS: KARINA REQ #: [id number] CAESAR: 11/17/23 09:[address]: Lucille Del Toro DEPT: [facility] Cytology RECD BY: Luisa Linda ENTERED: 11/17/23 13:00 SP TYPE: PAPFT OTHR DR: Gala White, [employer] ANALYST Tissues: 1 - CX/ENDOCX FOR PAP SMEARS Procedures: PAP THIN PREP/UVM Screening HPV DNA PROBE Comments: [id number] (HPV 16 & 18/45) (CHLAMYDIA/GC)
[2023-11-18 13:42] LABS: Chlamydia Result Negative (Negative); GC Result Negative (Negative)
== END 2023-11-17 09:41 | disposition home or self-care (01) ==
LOC: LBN 09:40
PROVIDERS: PCP Nurse Practitioner Family; Visit Provider Advanced Practice Midwife
DX: N89.8 Other specified noninflammatory disorders of vagina (principal)
CPT/HCPCS: 87491; 87591; 88142; 87480; 87510; 87624; 87660

== ENCOUNTER 2023-11-24 11:02 | Outpatient (CLI) | payer BC, SELFPAY ==
[2023-11-24 11:19] LABS: HCT 42.1 % (36.0-46.0); MCH 29.3 pg (27.0-33.0); MCHC 33.3 % (32.0-36.0); MCV 88 fL (80-95); MPV 9.7 fL (8.0-11.0); Platelet Count 257 10^3/uL (130-400); RBC 4.78 10^6/uL (3.93-5.22); RDW 13.2 % (11.7-14.6); RDW-SD 42.9 fL
[2023-11-24 11:59] LABS: ALT 19 U/L (14-59); AST 12 U/L (15-37); Albumin 4.3 g/dL (3.4-5.0); Alkaline Phosphatase 75 U/L (46-116); Anion Gap 9.9 mmol/L (3-11); BUN 10 mg/dL (7-18); Bilirubin, Total 0.7 mg/dL (0.2-1.0); CO2 26.1 mmol/L (21.0-32.0); CREATININE 0.7 mg/dL (0.55-1.02); Calcium 9.5 mg/dL (8.5-10.1); Chloride 105 mmol/L (98-107); Estimated GFR 115.59 (mL/min/1.73m2); Glucose 99 mg/dL (74-106); Potassium 3.6 mmol/L (3.5-5.1); Sodium 141 mmol/L (136-145); TSH (W/Ref FT4) 1.62 uIU/mL (0.36-3.74); Total Protein 7.8 g/dL (6.4-8.2)
[2023-11-24 18:34] LABS: Hepatitis B Surface Ag Negative (Negative)
[2023-11-24 19:04] LABS: HIV-1/2 Ag & Ab Screen Negative (Negative)
[2023-11-24 19:13] LABS: Hepatitis C Ab w Rflx HCV PCR Reactive (Negative)
[2023-11-25 14:11] LABS: HCV RNA Qualitative Undetected (Undetected)
[2023-11-27 14:48] LABS: Syphilis IgG w/Reflex Nonreactive (Nonreactive)
== END 2023-11-24 11:03 | disposition home or self-care (01) ==
LOC: LBO 11:02
PROVIDERS: PCP Nurse Practitioner Family; Visit Provider Advanced Practice Midwife
DX: Z00.00 Encounter for general adult medical examination without abnormal findings (principal); Z34.91 Encounter for supervision of normal pregnancy, unspecified, first trimester; Z34.90 Encounter for supervision of normal pregnancy, unspecified, unspecified trimester; F32.9 Major depressive disorder, single episode, unspecified
CPT/HCPCS: 36415; 80053; 85027; 86803; 87340; 87389; 87522; 84443; 86780

== ENCOUNTER 2024-06-05 03:22 | Outpatient (CLI) | payer BC, SELFPAY ==
--- NOTE | 2024-06-06 08:33 | W.NUTRFU ---
Date of service: 06/05/24 Time of Service: 14:00 Nutrition Note NOTE: Zaire is a 34yo female referred for today's nutrition visit to get additional assistance/guidance in meeting her weight mgt goals. She states ~130lbs would be desirable body weight. She was 163lbs at her last provider appt, as well as 61.5 - a BMI of 30.5. She does not have food insecurity but does need to make food bedgeting a priority. She relates no known food allergies but highlights that raw produce, in general upsets her stomach - fine with frzn/canned/cooked. She currently takes no nutrition supplements. ADHD meds can influence appetite per Zaire. Typically she falls into an unintentional pattern of eating during the window of 5pm to 9pm, even though she wakes at 5am most days. Her current diet assessed at low in protein, fiber, veggies, essential fats such as n-3's She does not engage in scheduled/targeted exercise routinely but is activity. Recommendations: -start MVI/multi mineral supplement and consider extra vitamin D at 2,000IU per day. make sure MVI contains iodine and iron. -take advantage of waking/daylight hours for influencing thermic effect of food and burn more kcals - eat 20-30g protein within an hour of waking up and consider meal/snack prepping with foods highi in fiber and protein for daytime eating and try to make fasting window more like 7pm to 5am. -Drink a good 2 Liters of water daily -Any kind of intense exercise and or strength training would be of benefit -goal of 25g fiber per day and less than 25g added sugar /day - reviewed tracking and sources of these. PT took my contact info should she desire follow up, more resources, help menu planning in more detail Time Spent in Nutritional Counseling and Treatment: 40min
== END 2024-06-05 03:23 | disposition home or self-care (01) ==
LOC: DS 03:22
PROVIDERS: PCP Nurse Practitioner Family; Visit Provider Dietitian, Registered
DX: R63.4 Abnormal weight loss (principal)
CPT/HCPCS: 00123; 97802

== ENCOUNTER 2024-11-24 10:09 | Emergency (ER) | payer BC, SELFPAY ==
[2024-11-24 10:11] VITALS: BP 111/71; PULSE 93; RESP 16; TEMP 36.8; O2SAT 96
--- NOTE | 2024-11-24 10:15 | DI.CT_ITS ---
Exam(s) CT RENAL COLIC WO EXAM: CT RENAL COLIC WO CLINICAL HISTORY: right flank pain. TECHNIQUE: Imaging Protocol: Axial computed tomography images with coronal and sagittal reformatted images were created and reviewed CONTRAST MATERIAL: Intravenous: none Oral: None COMPARISON: CT ABD PELVIS WITH CONTRAST from 04/29/2017 FINDINGS: VISUALIZED LUNG BASES: No nodules nor pleural effusions evident. ABDOMEN: There is no ascites. LIVER: There is significantly less liver enlargement and steatosis and was evident on the CT scan of March 2017. Liver size is normal. There are no obvious focal hepatic lesions evident on this non few study. GALLBLADDER/BILIARY: The gallbladder is again noted be surgically absent. CBD is not dilated. PANCREAS: No evidence of pancreatic mass nor dilatation of the pancreatic duct. SPLEEN: Spleen is not enlarged. No obvious intrasplenic lesions. ADRENALS: There are no significant adrenal masses. KIDNEYS:No cysts evident. No solid renal masses. No calculi nor hydronephrosis. . ABDOMINAL AORTA: Abdominal aorta is not enlarged. LYMPH NODES: There is no retroperitoneal nor paraaortic adenopathy. ABDOMINAL WALL: There is anterior abdominal wall midline fat only containing umbilical hernia. GI: There is no evidence of bowel obstruction, free air, nor abscess. PELVIS: LYMPH NODES: There is no intrapelvic nor inguinal adenopathy. GI: Surgical clips are noted in the region of the appendix no evidence of appendicitis.No evidence of sigmoid diverticulitis.There is no evidence of colitis pattern, as was evident on the 2017 CT scan. URINARY BLADDER: Bladder is collapsed. REPRODUCTIVE: Uterus and ovaries appear age-appropriate. No extraovarian adnexal masses and no free fluid in the pelvis. OSSEOUS: No significant osseous lesions. No fractures. Sacroiliac joints appear unremarkable. IMPRESSION: 1. No evidence of radiopaque ureteral nor renal calculi, as per request. No hydronephrosis. There a lso no radiopaque calculi in the partially collapsed urinary bladder lumen. 2. Previous cholecystectomy and probable appendectomy. There is no dilatation of biliary tree and th ere is no evidence of bowel obstruction, free air, nor abscess. 3. Significant improvement in the appearance of the liver when compared to CT scan of 2017. 4. No evidence of obvious colitis pattern at this time. Significant colitis was evident on the 2017 CT scan. RADIATION DOSE DELIVERED: 501.88mGy.cm Total DLP DATA REPOSITORY: All CT scans at this facility are submitted to the National Radiology Data Registry (NRDR) Dose Index Registry (DIR) with the [employer] (ACR). RADIATION OPTIMIZATION: All CT scans at this facility use at least one of these dose optimization te chniques: automated exposure control; mA and/or kV adjustment per patient size (includes targeted exa ms where dose is matched to clinical indication); or iterative reconstruction.
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
[2024-11-24] MEDS: Ketorolac 15 MG/ML VIAL IVP (10:41)
[2024-11-24 10:53] LABS: Abs Immature Grans 0.02 10^3/uL (0.0-0.06); Absolute Basophil Count 0.03 10^3/uL (0.0-0.2); Absolute Eosinophil Count 0.11 10^3/uL (0.0-0.7); Absolute Lymphocyte Count 1.73 10^3/uL (1.2-3.4); Absolute Monocyte Count 1.17 10^3/uL (0.1-0.8); Absolute Neutrophil Count 3.48 10^3/uL (1.2-6.7); Basophils % 0.5 %; Eosinophils % 1.7 %; HCT 42.8 % (36.0-46.0); HGB 14.1 g/dL (11.2-15.7); Immature Grans % 0.3 %; Lymphocytes % 26.5 %; MCH 28.7 pg (27.0-33.0); MCHC 32.9 % (32.0-36.0); MCV 87 fL (80-95); MPV 10.1 fL (8.0-11.0); Monocytes % 17.9 %; Neutrophils % 53.1 %; Platelet Count 217 10^3/uL (130-400); RBC 4.92 10^6/uL (3.93-5.22); RDW 12.9 % (11.7-14.6); RDW-SD 41.1 fL; WBC 6.54 10^3/uL (4.4-10.8)
[2024-11-24 10:54] LABS: Bilirubin Negative (Negative); Blood Moderate (Negative); Clarity Clear (Clear); Glucose Negative (Negative); Ketones Negative (Negative); Leukocyte Esterase Negative (Negative); Nitrite Negative (Negative); Specific Gravity 1.025 (1.005-1.025); Urobilinogen 0.2 mg/dL (Up to 0.2); pH 6.5 (5-8)
--- NOTE | 2024-11-24 11:04 | DI.RAD_ITS ---
Exam(s) XR CHEST 2V PA LATERAL EXAM: XR CHEST 2V PA LATERAL CLINICAL HISTORY: cough. TECHNIQUE: 2D digital imaging was performed. COMPARISON: No exams were available for comparison FINDINGS: 2 views: Heart size is normal. The mediastinum is not widened. Right lung is clear. Density in the retrocardiac region left side noted which this possibly just sum mation of shadows. No pleural effusions. IMPRESSION: Possible left lower lobe abnormality. If clinically indicated follow-up CT scan can be performed DATA REPOSITORY: RADIATION DOSE DELIVERED:
[2024-11-24 11:06] LABS: Bacteria Moderate HPF (Negative); C & S Indicated? No; Casts Negative LPF (Negative); Crystals Negative HPF (Negative); Epithelial Cells Moderate HPF (Negative); Mucus Moderate (Negative); WBC 0-2 HPF (0-5)
[2024-11-24 11:08] LABS: ALT 23 U/L (14-59); AST 13 U/L (15-37); Albumin 3.9 g/dL (3.4-5.0); Alkaline Phosphatase 96 U/L (46-116); Anion Gap 4.6 mmol/L (3-11); BUN 8 mg/dL (7-18); Bilirubin, Total 0.48 mg/dL (0.2-1.0); CO2 29.4 mmol/L (21.0-32.0); CREATININE 0.7 mg/dL (0.55-1.02); Calcium 8.7 mg/dL (8.5-10.1); Chloride 109 mmol/L (98-107); Estimated GFR 114.88 (mL/min/1.73m2); Glucose 84 mg/dL (74-106); Lipase 90 U/L (<78); Magnesium 1.8 mg/dL (1.8-2.4); Sodium 143 mmol/L (136-145); Total Protein 7.3 g/dL (6.4-8.2)
--- NOTE | 2024-11-24 11:12 | DI.VRAD_ITS ---
PROCEDURE INFORMATION: Exam: CT Abdomen And Pelvis Without Contrast Exam date and time: 11/24/2024 10:58 AM Age: 34 years old Clinical indication: Other: RT flank pain TECHNIQUE: Imaging protocol: Computed tomography of the abdomen and pelvis without contrast. Radiation optimization: All CT scans at this facility use at least one of these dose optimization techniques: automated exposure control; mA and/or kV adjustment per patient size (includes targeted exams where dose is matched to clinical indication); or iterative reconstruction. COMPARISON: US ABDOMEN ULTRASOUND (P) 03/03/2018 3:10 PM FINDINGS: Liver: Normal. No mass. Gallbladder and biliary ducts: Cholecystectomy Pancreas: Normal. No ductal dilation. Spleen: Normal. No splenomegaly. Adrenal glands: Normal. No mass. Kidneys and ureters: There is no evidence of renal or ureteral calcifications.. Stomach and bowel: Constipation throughout the colon Appendix: Normal appendix Intraperitoneal space: Unremarkable. No free air. No significant fluid collection. Vasculature: Unremarkable. No abdominal aortic aneurysm. Lymph nodes: Unremarkable. No enlarged lymph nodes. Urinary bladder: Unremarkable as visualized. Reproductive: Unremarkable as visualized. Bones/joints: Unremarkable. No acute fracture. Soft tissues: Umbilical hernia contains fat IMPRESSION: There is no evidence of renal or ureteral calcifications.. Dictated and Authenticated by: Donato Will MD. Ordering:MYRIAM Silva MD
--- NOTE | 2024-11-24 11:14 | DI.VRAD_ITS ---
PROCEDURE INFORMATION: Exam: XR Chest Exam date and time: 11/24/2024 11:04 AM Age: 34 years old Clinical indication: Cough TECHNIQUE: Imaging protocol: Radiologic exam of the chest. Views: 2 views. COMPARISON: CT RENAL COLIC WO 11/24/2024 10:58 AM FINDINGS: Lungs: 2.3 x 1.7 cm cavitary lesion is projected through the left heart. This may represent summation of shadows versus true pathology. Recommend chest CT if clinically indicated Pleural spaces: Unremarkable. No pleural effusion. No pneumothorax. Heart/Mediastinum: Unremarkable. No cardiomegaly. Bones/joints: Unremarkable. IMPRESSION: 2.3 x 1.7 cm cavitary lesion is projected through the left heart. This may represent summation of shadows versus true pathology. Recommend chest CT if clinically indicated. This area is not visualized on CT abdomen November 24 Dictated and Authenticated by: Donato Will MD. Ordering:MYRIAM Silva MD
--- NOTE | 2024-11-24 11:30 | DI.CT_ITS ---
Exam(s) CT CHEST W EXAM: CT CHEST W CLINICAL HISTORY: ?cavitary lesion on CT. TECHNIQUE: Multi planar reconstructions were performed. CONTRAST MATERIAL: Omnipaque 350; 75 cc COMPARISON: CT ABD PELVIS WITH CONTRAST from 04/29/2017 FINDINGS: CHEST: LUNGS: There is no infiltrate in the left lower lobe, as suspected on recent chest x-ray. Findings a re explained by normal lung vessels. There are no infiltrates nor pleural effusions. There is a 3 m illimeter nodule fissure related in the region of the lingular segment of the left lung.. There is a lso a 3 millimeter nodule in the right lower lobe lateral basal segment. Also 2 mm nodule in the ant erior basal segment of the right lower lobe. There are no pleural effusions. MEDIASTINUM: There is no hilar nor mediastinal adenopathy. Visualized thyroid unremarkable. CARDIAC: Heart size is normal. There is no pericardial effusion.Caliber of the thoracic aorta is wit hin normal limits. No evidence of dissection. Incidentally noted is independent origin of the left vertebral artery off the aortic arch. Ventricular ratio is 1:1 VISUALIZED UPPER ABDOMEN:There are no significant adrenal masses. Hepatic steatosis noted. OSSEOUS: No significant osseous lesions.. IMPRESSION: 1. No lung infiltrates nor pleural effusions. There are a few tiny benign-appearing lung nodules not ed. These can be restudy with repeat CT scan in 1 year 2. I note that the vertebral report stated possible right-sided pulmonary emboli. There is a possibl y that this is artifact. Please note that this was not performed as a pulmonary embolus study. Osvaldo mmend repeat study with dedicated pulmonary embolus protocol. First read by [facility] Findings are recommendations called by myself to ER physician 11/24/2024 at 3:10 p.m. RADIATION DOSE DELIVERED: 108.68mGy.cm Total DLP DATA REPOSITORY: All CT scans at this facility are submitted to the National Radiology Data Registry (NRDR) Dose Index Registry (DIR) with the [employer] (ACR). RADIATION OPTIMIZATION: All CT scans at this facility use at least one of these dose optimization te chniques: automated exposure control; mA and/or kV adjustment per patient size (includes targeted exa ms where dose is matched to clinical indication); or iterative reconstruction.
[2024-11-24 11:36] LABS: COVID-19 PCR Negative (Negative); Influenza A PCR Negative (Negative); Influenza B PCR Negative (Negative)
[2024-11-24 11:38] LABS: Source Nasopharynx
[2024-11-24 11:39] LABS: RSV PCR Positive (Negative)
[2024-11-24] MEDS: Normal Saline - Diluent 50 ML VIAL IJ (11:41)
[2024-11-24] MEDS: Omnipaque 350 MG/ML 100 ML BTL 70 ML IJ (11:42)
--- NOTE | 2024-11-24 12:13 | DI.VRAD_ITS ---
Addendum created by Donato Will MD on 11/24/2024 12:15:03 PM EST: THIS REPORT CONTAINS FINDINGS THAT MAY BE CRITICAL TO PATIENT CARE. The findings were verbally communicated via telephone conference with Ricardo De Jesus at 12:14 PM EST on 11/24/2024. The findings were acknowledged and understood. Initial report created on 11/24/2024 12:13:31 PM EST: PROCEDURE INFORMATION: Exam: CT Chest With Contrast; Diagnostic Exam date and time: 11/24/2024 11:47 AM Age: 34 years old Clinical indication: Other: ? Cavitary lesion on CT TECHNIQUE: Imaging protocol: Diagnostic computed tomography of the chest with contrast. 3D rendering (Not supervised by radiologist): MIP and/or 3D reconstructed images were created by the technologist. COMPARISON: CR XR CHEST 2V PA LATERAL 11/24/2024 11:04 AM FINDINGS: Lungs: Unremarkable. No consolidation. No masses. Pleural spaces: Unremarkable. No pneumothorax. No pleural effusion. Heart: 11 x 6 mm filling defect in the left atrial appendage may represent thrombus (series 2, image 24.) Smaller filling defect more distal in the atrial appendage on image 23 may represent thrombus.. Lymph nodes: Unremarkable. No enlarged lymph nodes. Vasculature: Filling defects in the distal right pulmonary artery measures 14 x 11 mm (series 8 image 48-54) consistent with non occluding pulmonary embolus. Bones/joints: Unremarkable. No acute fracture. Soft tissues: Unremarkable. IMPRESSION: 1. 11 x 6 mm filling defect in the left atrial appendage may represent thrombus (series 2, image 24.) Smaller filling defect more distal in the atrial appendage on image 23 may represent thrombus.. 2. Filling defects in the distal right pulmonary artery measures 14 x 11 mm (series 8 image 48-54) consistent with non occluding pulmonary embolus. Dictated and Authenticated by: Donato Will MD. Ordering:MYRIAM Silva MD
[2024-11-24 12:32] VITALS: BP 102/77; PULSE 63; RESP 16; O2SAT 98
--- NOTE | 2024-11-24 15:18 | W.ED.FU ---
Date of service: 11/24/24 Follow Up Plan: Patient was seen earlier in the emergency department and diagnosed with a pulmonary embolism and discharged on Eliquis. I was contacted by our radiologist who has over read the CT scan and is not convinced that there is a pulmonary embolism apparent on the study. I contacted the patient and updated her on this result. She understands to follow-up with her PCP and contact them on Tuesday to schedule an appointment. I have also ordered an outpatient CTA to reevaluate this area. Given that she is not hypoxic and hemodynamically stable during her emergency department visit she is already received contrast today do not feel that she needs to return for imaging today.
== END 2024-11-24 12:33 | disposition home or self-care (01) ==
PROVIDERS: Emergency Provider Emergency Medicine; PCP Nurse Practitioner Family
DX: I26.99 Other pulmonary embolism without acute cor pulmonale (principal); F17.210 Nicotine dependence, cigarettes, uncomplicated; F17.290 Nicotine dependence, other tobacco product, uncomplicated; Z79.899 Other long term (current) drug therapy
CPT/HCPCS: 36415; 80053; 81025; 83690; 87637; 96374; 99285; 71046; 71260; 74176; 81003; 81015; 83735; 85025; J1885; J3490

== ENCOUNTER 2024-12-05 15:18 | Outpatient (REF) | payer BC, SELFPAY ==
--- NOTE | 2024-12-05 15:00 | PAPFT_PTH ---
PATIENT: Zaire Page LOC: [facility] U#:[id number] AGE/SX: 34/F ROOM: RE12/05/[address]: Aida De Jesus NP : 1990 BED: DIS: 12/05/2024 SPEC #: [id number] RECD: 12/05/24 17:52 STATUS: KARINA REMogran #: [id number] CAESAR: 12/05/24 15:[address]: Neal PECK,Aida DEPT: [facility] Cytology RECD BY: Luisa Linda ENTERED: 12/05/24 17:52 SP TYPE: PAPFT OTHR DR: Gala White, REHABILITATION MEDICINE PHYSICIAN Tissues: 1 - CX/ENDOCX FOR PAP SMEARS Procedures: PAP THIN PREP/UVM Screening HPV DNA PROBE Comments: [id number] (HPV 16 & 18/45)
== END 2024-12-05 15:19 | disposition home or self-care (01) ==
LOC: LBN 15:18
PROVIDERS: PCP Nurse Practitioner Family; Visit Provider Nurse Practitioner Women's Health
DX: E66.9 Obesity, unspecified (principal); G25.81 Restless legs syndrome
CPT/HCPCS: 88142; 87624

== ENCOUNTER 2025-01-09 04:35 | Outpatient (CLI) | payer BC, SELFPAY ==
[2025-01-09 12:27] LABS: Hemoglobin A1C 5.4 % (<5.7)
[2025-01-09 13:16] LABS: Calculated LDL 89 mg/dL (<100); Cholesterol 142 mg/dL (<200); HDL Cholesterol 44 mg/dL (>or=50); Triglyceride 45 mg/dL (<150); Vitamin B12 1028 pg/mL (193-986); Vitamin D 25 Total 48 ng/mL (30-100)
== END 2025-01-09 04:36 | disposition home or self-care (01) ==
PROVIDERS: PCP Nurse Practitioner Family; Visit Provider Nurse Practitioner Family
DX: Z00.00 Encounter for general adult medical examination without abnormal findings (principal); E55.9 Vitamin D deficiency, unspecified; G62.9 Polyneuropathy, unspecified; G72.1 Alcoholic myopathy
CPT/HCPCS: 36415; 80061; 82306; 82607; 83036

== ENCOUNTER 2025-04-30 21:30 | Outpatient (REF) | payer BC, SELFPAY ==
[2025-04-30 21:22] LABS: HCG Qual (Urine) Negative
== END 2025-04-30 21:31 | disposition home or self-care (01) ==
LOC: LBN 21:30
PROVIDERS: PCP Nurse Practitioner Family; Visit Provider Nurse Practitioner Family
DX: Z30.9 Encounter for contraceptive management, unspecified (principal)
CPT/HCPCS: 81025